=== PATIENT | female | born 1965 | race Caucasian/White ===

== ENCOUNTER → 2017-05-11 | Emergency (ER) | payer OTHER ==
[~2017-05-11] VITALS: Ht 152.4 cm; Wt 68.0 kg
[~2017-05-11] MED LIST: CATAFLAM50 MG PO; FLEXERIL10 MG PO; VASOTEC2.5 MG; ZANTAC150 M3
== END | disposition home or self-care (01) ==
LOC: ER 13:54
DX: K52.9 Noninfective gastroenteritis and colitis, unspecified (principal)